=== PATIENT | male | born 1965 | race Caucasian/White ===

== ENCOUNTER 2018-12-06 10:54 | Emergency (ER) | payer OTHER ==
[~2018-12-06] VITALS: Ht 188 cm; Wt 122.5 kg
[2018-12-06 10:59] VITALS: BP 147/105
[2018-12-06] MEDS ORDERED: KEFLEX500 M1 PO ×2 (11:08→11:12)
== END 2018-12-06 11:13 | disposition home or self-care (01) ==
LOC: M.ERS 10:54
DX: K08.89 Other specified disorders of teeth and supporting structures (principal); Z88.2 Allergy status to sulfonamides; Z88.8 Allergy status to other drugs, medicaments and biological substances

== ENCOUNTER 2021-07-12 18:24 | Emergency (ER) | payer OTHER ==
[~2021-07-12] VITALS: Ht 188 cm; Wt 132.4 kg
[~2021-07-12 18:24] MED LIST: KEFLEX500 M1 PO
[2021-07-12 18:31] VITALS: BP 171/86
--- NOTE | 2021-07-13 11:08 | EKG ---
[place] [address] ELECTROCARDIOGRAM REPORT Name: TAMRA REID Room: [facility]#: [id number] Admission: 07/12/21 Attend Phys: Discharge: 07/12/21 Date of : 69 Date of Service: 07/12/211827 Report #: [id number] THIS REPORT FOR: //name// [facility] ED Test Date: 2021-07-12 Test Time: 18:28:22 Pat Name: TAMRA REID Department: Room: Gender: M [employer]: : 1965 Requested By: Reid Dia Order Number: [id number] MD: Michi Sanchez Measurements Intervals [place] Rate: 92 P: -3 [place]: 210 QRS: -27 QRSD: 99 T: 45 QT: 351 QTc: 435 Interpretive Statements Sinus rhythm Prolonged [place] interval Probable left atrial enlargement No previous ECG available for comparison Electronically Signed On 07-13-2021 11:08:35 [employer] by Michi Sanchez [email or web address] <ELECTRONICALLY SIGNED> By: Michi Sanchez MD, [facility] 07/13/21 1108 [id number] Michi Sanchez MD, [facility] /EPI
== END 2021-07-12 18:41 | disposition home or self-care (01) ==
LOC: M.ERS 18:24
DX: F41.9 Anxiety disorder, unspecified (principal); Z88.2 Allergy status to sulfonamides